=== PATIENT | female | born 1960 | race Caucasian/White ===

== ENCOUNTER 2018-07-16 16:19 | Emergency (ER) | payer SELFPAY ==
[~2018-07-16] VITALS: Ht 152.4 cm; Wt 90.5 kg
[2018-07-16 16:36] VITALS: BP 134/61
[2018-07-16 17:43] LABS: INFLUENZA TYPE A NEGATIVE FOR TYPE A (NEGATIVE); INFLUENZA TYPE B NEGATIVE FOR TYPE B (NEGATIVE)
[2018-07-16] MEDS ORDERED: ALBUTEROL SULFATE HFA 90 MCG/PUFF 8 GM INHALER IH ONE (17:45)
[2018-07-16] MEDS ORDERED: IBUPROFEN 800 MG TABLET PO ONE (17:45)
== END 2018-07-16 18:29 | disposition home or self-care (01) ==
LOC: EMS 16:20
DX: J20.9 Acute bronchitis, unspecified (principal); B34.9 Viral infection, unspecified; Z88.5 Allergy status to narcotic agent
CPT/HCPCS: 87804; 94640; J3535

== ENCOUNTER 2021-12-13 19:40 | Emergency (ER) | payer OTHER ==
[~2021-12-13] VITALS: Ht 152.4 cm; Wt 92.7 kg
[2021-12-13 21:05] VITALS: BP 140/76
[2021-12-13] MEDS ORDERED: LIDOCAINE 1% 10 ML VIAL PERC ONE (21:15)
[2021-12-13] MEDS ORDERED: PERTUSS(ACELL),DIPH,TET VAC/PF 0.5 ML SYRINGE IM. ONE (21:15)
== END 2021-12-13 21:48 | disposition home or self-care (01) ==
LOC: EMS 19:43
DX: S81.012A Laceration without foreign body, left knee, initial encounter (principal); Z88.5 Allergy status to narcotic agent; W45.8XXA Other foreign body or object entering through skin, initial encounter; Y93.89 Activity, other specified; Y92.89 Other specified places as the place of occurrence of the external cause; Y99.8 Other external cause status
CPT/HCPCS: 12002; 90471; 90715; 99283; J3490

== ENCOUNTER 2021-12-19 12:19 | Emergency (ER) | payer OTHER ==
[~2021-12-19] VITALS: Ht 152.4 cm; Wt 93.2 kg
[2021-12-19 12:46] VITALS: BP 110/76
== END 2021-12-19 14:03 | disposition home or self-care (01) ==
LOC: EMS 12:19
DX: S81.011D Laceration without foreign body, right knee, subsequent encounter (principal); F17.210 Nicotine dependence, cigarettes, uncomplicated; Z88.5 Allergy status to narcotic agent; X58.XXXD Exposure to other specified factors, subsequent encounter
CPT/HCPCS: 99281; Z7502

== ENCOUNTER 2023-12-31 02:46 | Emergency (ER) | payer MEDICARE, OTHER ==
[~2023-12-31] VITALS: Ht 152.4 cm; Wt 95.0 kg
[2023-12-31 02:52] VITALS: TEMP 98.2
[2023-12-31] MEDS: AMOXICILLIN TRIHYDRATE 250 MG CAPSULE PO ONE (04:31)
[2023-12-31] MEDS: CIPROFLOXACIN HCL 0.2%/HYDROCORT 1% 10 ML OTIC SUSPENSION AD ONE (04:32)
[2023-12-31] MEDS ORDERED: CEPH-558 PO (04:42)
[2023-12-31 04:45] VITALS: BP 127/70; PULSE 76; RESP 16
== END 2023-12-31 05:15 | disposition home or self-care (01) ==
LOC: EMS 02:46
DX: H60.11 Cellulitis of right external ear (principal); H60.91 Unspecified otitis externa, right ear; F17.210 Nicotine dependence, cigarettes, uncomplicated; Z88.5 Allergy status to narcotic agent
CPT/HCPCS: 99283

== ENCOUNTER 2024-03-25 12:07 | Emergency (ER) | payer MEDICARE ==
[~2024-03-25] VITALS: Ht 152.4 cm; Wt 90.9 kg
[~2024-03-25 12:07] MED LIST: CEPH-558 PO
[2024-03-25 12:38] VITALS: TEMP 97.6
[2024-03-25] MEDS: ACETAMINOPHEN 325 MG TABLET PO ONE (13:59)
[2024-03-25 14:14] VITALS: BP 141/76; PULSE 72; RESP 18; O2SAT 97
== END 2024-03-25 14:15 | disposition home or self-care (01) ==
LOC: EMS 12:13
DX: S80.02XA Contusion of left knee, initial encounter (principal); S49.91XA Unspecified injury of right shoulder and upper arm, initial encounter; F17.210 Nicotine dependence, cigarettes, uncomplicated; Z88.5 Allergy status to narcotic agent; W22.8XXA Striking against or struck by other objects, initial encounter; Y93.89 Activity, other specified; Y92.89 Other specified places as the place of occurrence of the external cause; Y99.8 Other external cause status
CPT/HCPCS: 99284; 73030-TC; 73562-TC; Z7502; Z7610

== ENCOUNTER 2024-12-18 22:11 | Inpatient (IN) | payer MEDICARE ==
[~2024-12-18] VITALS: Ht 165.1 cm; Wt 108.9 kg
[~2024-12-18 22:11] MED LIST changes: +METF-81 PO
[2024-12-18 22:15] VITALS: PULSE 133; RESP 42; O2SAT 94
[2024-12-18] MEDS ORDERED: ALBUTEROL SULFATE 2.5 MG/0.5 ML NEB SOLUTION NEB ONE (22:15)
[2024-12-18] MEDS ORDERED: IPRATROPIUM BROMIDE 0.5 MG/2.5 ML NEB SOLUTION NEB ONE (22:15)
[2024-12-18] MEDS: FUROSEMIDE 20 MG/2 ML VIAL IVP ONE (22:23)
[2024-12-18] MEDS: IPRATROPIUM BROMIDE 0.5 MG/2.5 ML NEB SOLUTION NEB ONE (22:26)
[2024-12-18] MEDS: LEVALBUTEROL 1.25 MG/0.5 ML NEB SOLUTION NEB ONE (22:27)
[2024-12-18 22:30] VITALS: PULSE 134; RESP 46; O2SAT 99
[2024-12-18 22:35] LABS: EOSINOPHILS % (AUTO) 1.1 % (1.0-6.0); HEMATOCRIT 36.7 % (36-46); HEMOGLOBIN 11.3 g/dL (12.0-16.0); LYMPHOCYTES # (AUTO) 6.8 K/uL (1.0-4.8); LYMPHOCYTES % (AUTO) 25.4 % (22.0-44.0); MEAN CORPUSCULAR HEMOGLOBIN 26.2 pg (26.0-34.0); MEAN CORPUSCULAR VOLUME 85 fL (80-100); MONOCYTES # (AUTO) 2.7 K/uL (0.1-1.0); NEUTROPHILS # (AUTO) 16.8 K/uL (1.8-7.7); NEUTROPHILS % (AUTO) 62.5 % (40.0-70.0); PLATELET COUNT (AUTO) 586 K/uL (150-450); RED BLOOD CELL COUNT(AUTO) 4.33 MIL/uL (4.00-5.20); RED CELL DISTRIBUTION WIDTH 14.4 % (11.5-14.5); WHITE BLOOD COUNT (AUTO) 26.8 K/uL (4.5-11.0)
[2024-12-18 22:43] LABS: ANION GAP 9 mmol/L (8-16); CALCIUM, TOTAL 8.6 mg/dL (8.8-10.5); CARBON DIOXIDE 24 mmol/L (22-29); CHLORIDE 104 mmol/L (98-107); CREATININE 1.44 mg/dL (0.60-1.30); GLOMERULAR FILTR. RATE CALC 36 mL/min (>60); GLUCOSE,RANDOM 249 mg/dL (70-110); POTASSIUM 4.7 mmol/L (3.5-5.1); SODIUM SERUM 137 mmol/L (136-145); UREA NITROGEN, BLOOD 20 mg/dL (7-18)
[2024-12-18 22:45] VITALS: PULSE 132; RESP 48; O2SAT 99
[2024-12-18] MEDS ORDERED: VANCOMYCIN 1.25 GM/WATER(PEG) 250 ML IV ONE (22:45)
[2024-12-18 22:49] LABS: PROTHROMBIN TIME 11.7 SEC (9.4-11.6)
[2024-12-18 22:50] LABS: ALANINE AMINOTRANSFERASE 8 U/L (12-78); ALBUMIN 2.3 g/dL (3.4-5.0); ALKALINE PHOSPHATASE 96 U/L (46-116); ASPARTATE AMINOTRANSFERASE 45 U/L (15-37); BILIRUBIN,TOTAL 0.4 mg/dL (0.1-1.0); CREATINE KINASE, TOTAL ONLY 71 U/L (26-192); PHOSPHORUS 6.2 mg/dL (2.5-4.9); TOTAL PROTEIN, SERUM 8.1 g/dL (6.4-8.2)
[2024-12-18 22:51] LABS: B-TYPE NATRIURETIC PEPTIDE 1390 pg/mL (0-100)
[2024-12-18 22:54] LABS: LACTIC ACID 6.6 mmol/L (0.4-2.0)
[2024-12-18] MEDS: ACETAMINOPHEN 1000 MG/ISO-OSM 100 ML IV ONE (22:54)
[2024-12-18] MEDS: PIPERACILLIN/TAZO 3.375 GM/D5W 50 ML IV ONE (22:54)
[2024-12-18] MEDS: AZITHROMYCIN 500 MG/NS 250 ML IV ONE (22:54)
[2024-12-18 22:55] LABS: TROPONIN I-HIGH SENSITIVITY 21 ng/L (<51)
[2024-12-18] MEDS: VANCOMYCIN HCL 1.25 GM in DEXTROSE 5%-WATER 250 ML IV SCH (23:30)
[2024-12-19] VITALS (11 sets, daily range): BP systolic 106–129; BP diastolic 51–69; PULSE 81–93; RESP 18–29; TEMP 97.5–98.1; O2SAT 94–100
[2024-12-19 00:27] LABS: COVID AG,FIA SOURCE NASAL SWAB
[2024-12-19 00:48] LABS: APPEARANCE,URINE HAZY (CLEAR); BILIRUBIN,URINE NEGATIVE (NEGATIVE); COLOR,URINE LIGHT YELLOW (YELLOW); GLUCOSE, URINE (UA) TRACE mg/dL (NEGATIVE); KETONES,URINE NEGATIVE (NEGATIVE); LEUKOCYTE ESTERASE ,URINE NEGATIVE (NEGATIVE); NITRATE,URINE NEGATIVE (NEGATIVE); OCCULT BLOOD,URINE MODERATE (NEGATIVE); PH,URINE 6.5 (5.0-8.0); PROTEIN,URINE 300-600,SEE CONFIRM mg/dL (NEGATIVE); SPECIFIC GRAVITIY, URINE 1.012 (1.003-1.030); UROBILINOGEN,URINE <=1.0 mg/dL (<=1.0)
[2024-12-19 00:55] LABS: SARS-COV2 (COVID) ANTIGEN,FIA Negative (Negative)
[2024-12-19 00:56] LABS: INFLUENZA TYPE A NEGATIVE FOR TYPE A (NEGATIVE); INFLUENZA TYPE B NEGATIVE FOR TYPE B (NEGATIVE)
[2024-12-19 01:04] LABS: BACTERIA,URINE Moderate /HPF (None Seen); SQUAMOUS EPITHELIAL CELL,UR Moderate /LPF (None Seen); SULFOSALICYLIC ACID,URINE 2+ (Negative)
[2024-12-19 05:13] LABS: BASOPHILS % (AUTO) 0.1 % (0.0-2.0); EOSINOPHILS % (AUTO) 0.2 % (1.0-6.0); HEMATOCRIT 28.2 % (36-46); HEMOGLOBIN 9.1 g/dL (12.0-16.0); MEAN CORPUSCULAR HEMOGLOBIN 26.1 pg (26.0-34.0); MEAN CORPUSCULAR HGB CONC 32.2 G/dL (31.0-37.0); MEAN CORPUSCULAR VOLUME 81 fL (80-100); MONOCYTES # (AUTO) 1.2 K/uL (0.1-1.0); MONOCYTES % (AUTO) 7.9 % (2.0-9.0); NEUTROPHILS # (AUTO) 12.6 K/uL (1.8-7.7); NEUTROPHILS % (AUTO) 84.8 % (40.0-70.0); PLATELET COUNT (AUTO) 356 K/uL (150-450); RED BLOOD CELL COUNT(AUTO) 3.48 MIL/uL (4.00-5.20); WHITE BLOOD COUNT (AUTO) 14.9 K/uL (4.5-11.0)
[2024-12-19 05:23] LABS: ANION GAP 6 mmol/L (8-16); CARBON DIOXIDE 26 mmol/L (22-29); CHLORIDE 105 mmol/L (98-107); CREATININE 1.61 mg/dL (0.60-1.30); GLOMERULAR FILTR. RATE CALC 32 mL/min (>60); GLUCOSE,RANDOM 118 mg/dL (70-110); POTASSIUM 5.3 mmol/L (3.5-5.1); SODIUM SERUM 137 mmol/L (136-145); UREA NITROGEN, BLOOD 23 mg/dL (7-18)
[2024-12-19 05:35] LABS: TROPONIN I-HIGH SENSITIVITY 92 ng/L (<51)
[2024-12-19] MEDS ORDERED: BISACODYL 10 MG RECTAL RECTAL SUPPOSITORY PR PRN (05:45)
[2024-12-19] MEDS ORDERED: ACETAMINOPHEN 325 MG TABLET PO PRN (05:45)
[2024-12-19] MEDS ORDERED: MAGNESIUM HYDROXIDE SUSPENSION 30 ML UDCUP PO PRN (05:45)
[2024-12-19] MEDS: MethylPREDNISolone SOD SUCC 125 MG/2 ML VIAL IVP SCH (06:21)
[2024-12-19] MEDS: PIPERACILLIN/TAZO 3.375 GM/D5W 50 ML IV SCH (06:21)
[2024-12-19 07:36] LABS: TROPONIN I-HIGH SENSITIVITY 89 ng/L (<51)
[2024-12-19] MEDS ORDERED: VANCOMYCIN 1.25 GM/WATER(PEG) 250 ML IV SCH (08:00)
[2024-12-19 08:05] LABS: ABG A-A DIFF O2 163.3 mmHg (10-20.0); ABG BASE EXCESS -1.3 mmol/L (-2.0-3.0); ABG CARBOXYHEMOGLOBIN 0.2 % (0.5-1.5); ABG HCO3 23.7 mmol/L (21.0-28.0); ABG METHEMOGLOBIN 0.1 % (0.0-1.5); ABG OXYGEN CONTENT 14.8 mL/dL (15.0-23.0); ABG OXYGEN SATURATION 99.1 % (94.0-98.0); ABG OXYHEMOGLOBIN 98.8 % (94.0-98.0); ABG PCO2 37 mmHg (32.0-45.0); ABG PH 7.416 (7.350-7.450); ABG TOTAL HEMOGLOBIN 10.4 G/dL (12.0-16.0); ALLEN TEST, BLOOD GAS Positive; O2 DEVICE,BLOOD GAS BIPAP (ROOM AIR); PO2, ARTERIAL BG 151.9 mmHg (83.0-108.0); SITE, BLOOD GAS LFT RADIAL; SOURCE, BLOOD GAS ARTERIAL
[2024-12-19 08:06] LABS: SPONTANEOUS VT, BG 400 ml
[2024-12-19] MEDS: DOCUSATE SODIUM 100 MG CAPSULE PO SCH (08:07)
[2024-12-19] MEDS: HEPARIN SODIUM,PORCINE 5,000 UNITS/ML VIAL SQ SCH (08:07)
[2024-12-19] MEDS: PANTOPRAZOLE SODIUM 40 MG DR TABLET PO SCH (08:07)
[2024-12-19] MEDS: GuaiFENesin SR 600 MG ER TABLET PO SCH (08:07)
[2024-12-19] MEDS: BENZONATATE 100 MG CAPSULE PO SCH (08:07)
[2024-12-19] MEDS: ALBUTEROL SULFATE 2.5 MG/0.5 ML NEB SOLUTION NEB SCH (08:10)
[2024-12-19] MEDS: IPRATROPIUM BROMIDE 0.5 MG/2.5 ML NEB SOLUTION NEB SCH (08:10)
[2024-12-19] MEDS: VANCOMYCIN HCL 1.25 GM in DEXTROSE 5%-WATER 250 ML IV SCH (08:19)
[2024-12-19 16:47] LABS: APPEARANCE,URINE HAZY (CLEAR); BILIRUBIN,URINE NEGATIVE (NEGATIVE); COLOR,URINE LIGHT YELLOW (YELLOW); GLUCOSE, URINE (UA) NEGATIVE (NEGATIVE); KETONES,URINE NEGATIVE (NEGATIVE); LEUKOCYTE ESTERASE ,URINE SMALL (NEGATIVE); NITRATE,URINE NEGATIVE (NEGATIVE); OCCULT BLOOD,URINE LARGE (NEGATIVE); PH,URINE 5.5 (5.0-8.0); PROTEIN,URINE 100-200,SEE CONFIRM mg/dL (NEGATIVE); SPECIFIC GRAVITIY, URINE 1.012 (1.003-1.030); UROBILINOGEN,URINE <=1.0 mg/dL (<=1.0)
[2024-12-19 16:56] LABS: PROTEIN,URINE RANDOM 137 mg/dL (0-11.9); SODIUM,URINE RANDOM 28 mmol/l (20-110); UREA NITROGEN,URINE RANDOM 159 mg/dL (350-1000)
[2024-12-19] MEDS ORDERED: SODIUM CHLORIDE 0.9% 250 ML IV ONE (17:37)
[2024-12-19 17:53] LABS: BACTERIA,URINE Moderate /HPF (None Seen); FINE GRANULAR CASTS,URINE 0-2 /LPF (None Seen); SQUAMOUS EPITHELIAL CELL,UR Few /LPF (None Seen)
[2024-12-19] MEDS: FUROSEMIDE 40 MG/4 ML VIAL IVP SCH (20:42)
[2024-12-20] VITALS (13 sets, daily range): BP systolic 106–133; BP diastolic 62–76; PULSE 77–89; RESP 18–28; TEMP 97.9–98.4; O2SAT 95–100
[2024-12-20 06:39] LABS: BASOPHILS % (AUTO) 0.1 % (0.0-2.0); EOSINOPHILS % (AUTO) 0 % (1.0-6.0); HEMATOCRIT 31.1 % (36-46); HEMOGLOBIN 10.1 g/dL (12.0-16.0); LYMPHOCYTES # (AUTO) 0.6 K/uL (1.0-4.8); LYMPHOCYTES % (AUTO) 4.3 % (22.0-44.0); MEAN CORPUSCULAR HEMOGLOBIN 26.6 pg (26.0-34.0); MEAN CORPUSCULAR HGB CONC 32.5 G/dL (31.0-37.0); MEAN CORPUSCULAR VOLUME 82 fL (80-100); MONOCYTES # (AUTO) 0.2 K/uL (0.1-1.0); MONOCYTES % (AUTO) 1.6 % (2.0-9.0); PLATELET COUNT (AUTO) 383 K/uL (150-450); RED BLOOD CELL COUNT(AUTO) 3.79 MIL/uL (4.00-5.20); RED CELL DISTRIBUTION WIDTH 14.2 % (11.5-14.5); WHITE BLOOD COUNT (AUTO) 13.8 K/uL (4.5-11.0)
[2024-12-20 06:51] LABS: CALCIUM, TOTAL 8.5 mg/dL (8.8-10.5); CREATININE 3.16 mg/dL (0.60-1.30); POTASSIUM 4.7 mmol/L (3.5-5.1)
[2024-12-20 06:56] LABS: MAGNESIUM 2.2 mg/dL (1.80-2.40); PHOSPHORUS 6.1 mg/dL (2.5-4.9)
[2024-12-20] MEDS ORDERED: VANCOMYCIN 1GM/WATER(PEG/NADA) 200 ML IV PRN (09:00)
[2024-12-20 12:11] LABS: ABG BASE EXCESS -6.9 mmol/L (-2.0-3.0); ABG CARBOXYHEMOGLOBIN 0.3 % (0.5-1.5); ABG HCO3 19.7 mmol/L (21.0-28.0); ABG OXYGEN CONTENT 13.5 mL/dL (15.0-23.0); ABG OXYGEN SATURATION 96.6 % (94.0-98.0); ABG OXYHEMOGLOBIN 95.3 % (94.0-98.0); ABG PCO2 27 mmHg (32.0-45.0); ABG PH 7.427 (7.350-7.450); PO2, ARTERIAL BG 79.9 mmHg (83.0-108.0); SOURCE, BLOOD GAS ARTERIAL; TEMPERATURE, FAHRENHEIT, BG 98.1 FAHREN (96.0-98.6)
[2024-12-20 12:12] LABS: ABG A-A DIFF O2 37.5 mmHg (10-20.0); ALLEN TEST, BLOOD GAS Positive; O2 DEVICE,BLOOD GAS ROOM AIR (ROOM AIR); SITE, BLOOD GAS LFT RADIAL
[2024-12-20] MEDS ORDERED: RISA150P SQ (12:12)
[2024-12-20] MEDS: SODIUM CHLORIDE 0.9% 1,000 ML IV SCH (13:26)
[2024-12-20] MEDS: PIPERACILLIN SODIUM/TAZOBACTAM 2.25 GM in DEXTROSE 5%-WATER 50 ML IV SCH (13:26)
[2024-12-20] MEDS: MethylPREDNISolone SOD SUCC 40 MG/ML VIAL IVP SCH (13:26)
[2024-12-20] MEDS ORDERED: FUROSEMIDE 40 MG/4 ML VIAL IVP SCH (21:00)
[2024-12-20] MEDS: ZOLPIDEM TARTRATE 5 MG TABLET PO PRN (22:34)
[2024-12-21] VITALS (12 sets, daily range): BP systolic 104–151; BP diastolic 57–89; PULSE 74–90; RESP 18–28; TEMP 97.3–98.1; O2SAT 96–100
[2024-12-21] MEDS: ALBUTEROL SULFATE 2.5 MG/0.5 ML NEB SOLUTION NEB PRN (04:31)
[2024-12-21] MEDS: IPRATROPIUM BROMIDE 0.5 MG/2.5 ML NEB SOLUTION NEB PRN (04:31)
[2024-12-21 06:50] LABS: BASOPHILS % (AUTO) 0.1 % (0.0-2.0); EOSINOPHILS % (AUTO) 0 % (1.0-6.0); HEMATOCRIT 26.4 % (36-46); HEMOGLOBIN 8.7 g/dL (12.0-16.0); LYMPHOCYTES # (AUTO) 0.6 K/uL (1.0-4.8); LYMPHOCYTES % (AUTO) 6.1 % (22.0-44.0); MEAN CORPUSCULAR HEMOGLOBIN 26.8 pg (26.0-34.0); MEAN CORPUSCULAR HGB CONC 32.9 G/dL (31.0-37.0); MEAN CORPUSCULAR VOLUME 81 fL (80-100); MONOCYTES # (AUTO) 0.3 K/uL (0.1-1.0); MONOCYTES % (AUTO) 2.8 % (2.0-9.0); NEUTROPHILS # (AUTO) 9.3 K/uL (1.8-7.7); PLATELET COUNT (AUTO) 362 K/uL (150-450); RED BLOOD CELL COUNT(AUTO) 3.24 MIL/uL (4.00-5.20); RED CELL DISTRIBUTION WIDTH 14.2 % (11.5-14.5); WHITE BLOOD COUNT (AUTO) 10.2 K/uL (4.5-11.0)
[2024-12-21 06:56] LABS: CALCIUM, TOTAL 8.2 mg/dL (8.8-10.5); CREATININE 3.96 mg/dL (0.60-1.30); POTASSIUM 4.6 mmol/L (3.5-5.1)
[2024-12-21] MEDS: PIPERACILLIN SODIUM/TAZOBACTAM 2.25 GM in DEXTROSE 5%-WATER 50 ML IV SCH (14:06)
[2024-12-22] VITALS (15 sets, daily range): BP systolic 125–147; BP diastolic 68–88; PULSE 65–93; RESP 18–22; TEMP 97.5–98.4; O2SAT 95–100
[2024-12-22 07:06] LABS: BASOPHILS % (AUTO) 0.1 % (0.0-2.0); EOSINOPHILS % (AUTO) 0 % (1.0-6.0); HEMATOCRIT 28.9 % (36-46); HEMOGLOBIN 9.4 g/dL (12.0-16.0); LYMPHOCYTES # (AUTO) 0.7 K/uL (1.0-4.8); LYMPHOCYTES % (AUTO) 6.4 % (22.0-44.0); MEAN CORPUSCULAR HEMOGLOBIN 26.7 pg (26.0-34.0); MEAN CORPUSCULAR HGB CONC 32.5 G/dL (31.0-37.0); MEAN CORPUSCULAR VOLUME 82 fL (80-100); MONOCYTES # (AUTO) 0.3 K/uL (0.1-1.0); MONOCYTES % (AUTO) 2.8 % (2.0-9.0); NEUTROPHILS # (AUTO) 9.9 K/uL (1.8-7.7); PLATELET COUNT (AUTO) 432 K/uL (150-450); RED BLOOD CELL COUNT(AUTO) 3.51 MIL/uL (4.00-5.20); RED CELL DISTRIBUTION WIDTH 14.5 % (11.5-14.5); WHITE BLOOD COUNT (AUTO) 10.9 K/uL (4.5-11.0)
[2024-12-22 07:09] LABS: NEUTROPHILS % (AUTO) 90.7 % (40.0-70.0)
[2024-12-22 07:22] LABS: CALCIUM, TOTAL 8.4 mg/dL (8.8-10.5); CREATININE 4.19 mg/dL (0.60-1.30); POTASSIUM 4.3 mmol/L (3.5-5.1)
[2024-12-22 07:31] LABS: MAGNESIUM 2.3 mg/dL (1.80-2.40); PHOSPHORUS 7.5 mg/dL (2.5-4.9)
[2024-12-22] MEDS: *CLINICAL-LEVOFLOXACIN ORAL DOSING CLINICAL ONE (17:12)
[2024-12-22] MEDS: LEVOFLOXACIN 750 MG/D5% WATER 150 ML IV ONE (18:14)
[2024-12-22] MEDS: CeFAZolin 2 GM/DEXTROSE 50 ML IV SCH (21:00)
[2024-12-23] VITALS (11 sets, daily range): BP systolic 141–155; BP diastolic 68–88; PULSE 73–82; RESP 17–20; TEMP 97.5–97.9; O2SAT 95–100
[2024-12-23 07:15] LABS: ALBUMIN 2.5 g/dL (3.4-5.0); BILIRUBIN,TOTAL 0.5 mg/dL (0.1-1.0); CALCIUM, TOTAL 8.6 mg/dL (8.8-10.5); CREATININE 3.92 mg/dL (0.60-1.30); POTASSIUM 4.3 mmol/L (3.5-5.1); TOTAL PROTEIN, SERUM 7.5 g/dL (6.4-8.2)
[2024-12-23] MEDS: PredniSONE 20 MG TABLET PO SCH (08:31)
[2024-12-23] MEDS ORDERED: DEXTROSE 50%-WATER 25 GM/50 ML SYRINGE IVP PRN (18:45)
[2024-12-23] MEDS: INSULIN LISPRO 100 UNITS/ML SQ PRN (20:45)
[2024-12-24] VITALS (12 sets, daily range): BP systolic 141–160; BP diastolic 74–93; PULSE 73–95; RESP 16–20; TEMP 97.5–98.2; O2SAT 94–100
[2024-12-24 05:46] LABS: GLUCOMETER DEV NAME(LOC) 5N.2C; GLUCOSE,POINT OF CARE 232 MG/DL (70-110)
[2024-12-24 06:05] LABS: GLUCOMETER DEV NAME(LOC) 5N.2C; GLUCOSE,POINT OF CARE 123 MG/DL (70-110)
[2024-12-24 06:57] LABS: BASOPHILS % (AUTO) 0.1 % (0.0-2.0); EOSINOPHILS % (AUTO) 0.1 % (1.0-6.0); HEMATOCRIT 27.5 % (36-46); LYMPHOCYTES # (AUTO) 1.1 K/uL (1.0-4.8); MEAN CORPUSCULAR HEMOGLOBIN 26.6 pg (26.0-34.0); MEAN CORPUSCULAR HGB CONC 32.6 G/dL (31.0-37.0); MEAN CORPUSCULAR VOLUME 81 fL (80-100); MONOCYTES # (AUTO) 0.9 K/uL (0.1-1.0); MONOCYTES % (AUTO) 9.1 % (2.0-9.0); NEUTROPHILS # (AUTO) 7.5 K/uL (1.8-7.7); NEUTROPHILS % (AUTO) 78.7 % (40.0-70.0); PLATELET COUNT (AUTO) 339 K/uL (150-450); RED BLOOD CELL COUNT(AUTO) 3.37 MIL/uL (4.00-5.20); RED CELL DISTRIBUTION WIDTH 14.7 % (11.5-14.5); WHITE BLOOD COUNT (AUTO) 9.5 K/uL (4.5-11.0)
[2024-12-24 07:05] LABS: ALBUMIN 2.5 g/dL (3.4-5.0); BILIRUBIN,TOTAL 0.4 mg/dL (0.1-1.0); CALCIUM, TOTAL 8.6 mg/dL (8.8-10.5); CREATININE 3.59 mg/dL (0.60-1.30); POTASSIUM 4.2 mmol/L (3.5-5.1); TOTAL PROTEIN, SERUM 6.9 g/dL (6.4-8.2)
[2024-12-24 07:19] LABS: % IRON SATURATION 26.2 % (22-44)
[2024-12-24] MEDS: LEVOFLOXACIN 500 MG/D5% WATER 100 ML IV SCH (17:15)
[2024-12-24 18:36] LABS: GLUCOMETER DEV NAME(LOC) 5S.2D; GLUCOSE,POINT OF CARE 171 MG/DL (70-110)
[2024-12-24 18:36] LABS: GLUCOMETER DEV NAME(LOC) 5S.2D; GLUCOSE,POINT OF CARE 235 MG/DL (70-110)
[2024-12-24 22:51] LABS: GLUCOMETER DEV NAME(LOC) 5N.2C; GLUCOSE,POINT OF CARE 168 MG/DL (70-110)
[2024-12-25] VITALS (10 sets, daily range): BP systolic 137–159; BP diastolic 72–74; PULSE 79–92; RESP 18–24; TEMP 97.7–98.1; O2SAT 95–100
[2024-12-25 07:29] LABS: CALCIUM, TOTAL 8.5 mg/dL (8.8-10.5); CREATININE 3.27 mg/dL (0.60-1.30); POTASSIUM 4.2 mmol/L (3.5-5.1)
[2024-12-25] MEDS: PredniSONE 20 MG TABLET PO SCH (08:16)
[2024-12-25 12:01] LABS: GLUCOMETER DEV NAME(LOC) 5S.2D; GLUCOSE,POINT OF CARE 166 MG/DL (70-110)
[2024-12-25] MEDS: FUROSEMIDE 20 MG/2 ML VIAL IVP ONE (13:40)
[2024-12-25 13:46] LABS: GLUCOMETER DEV NAME(LOC) 5S.2D; GLUCOSE,POINT OF CARE 147 MG/DL (70-110)
[2024-12-25 22:00] LABS: GLUCOMETER DEV NAME(LOC) 5N.2C; GLUCOSE,POINT OF CARE 196 MG/DL (70-110)
[2024-12-25 22:16] LABS: GLUCOMETER DEV NAME(LOC) 5S.2D; GLUCOSE,POINT OF CARE 213 MG/DL (70-110)
[2024-12-26] VITALS (15 sets, daily range): BP systolic 125–159; BP diastolic 59–88; PULSE 72–99; RESP 17–20; TEMP 97.7–98.2; O2SAT 97–100
[2024-12-26 07:16] LABS: GLUCOMETER DEV NAME(LOC) 5N.2C; GLUCOSE,POINT OF CARE 119 MG/DL (70-110)
[2024-12-26 07:52] LABS: BASOPHILS % (AUTO) 0.1 % (0.0-2.0); EOSINOPHILS % (AUTO) 1.2 % (1.0-6.0); HEMATOCRIT 31.9 % (36-46); HEMOGLOBIN 10.4 g/dL (12.0-16.0); LYMPHOCYTES # (AUTO) 1.1 K/uL (1.0-4.8); LYMPHOCYTES % (AUTO) 8.8 % (22.0-44.0); MEAN CORPUSCULAR HEMOGLOBIN 26.4 pg (26.0-34.0); MEAN CORPUSCULAR HGB CONC 32.6 G/dL (31.0-37.0); MEAN CORPUSCULAR VOLUME 81 fL (80-100); MONOCYTES % (AUTO) 8.2 % (2.0-9.0); NEUTROPHILS # (AUTO) 10.5 K/uL (1.8-7.7); NEUTROPHILS % (AUTO) 81.7 % (40.0-70.0); PLATELET COUNT (AUTO) 381 K/uL (150-450); RED BLOOD CELL COUNT(AUTO) 3.93 MIL/uL (4.00-5.20); RED CELL DISTRIBUTION WIDTH 15.2 % (11.5-14.5); WHITE BLOOD COUNT (AUTO) 12.8 K/uL (4.5-11.0)
[2024-12-26] MEDS: carvediloL 3.125 MG TABLET PO SCH (08:00)
[2024-12-26 08:08] LABS: ALBUMIN 2.4 g/dL (3.4-5.0); BILIRUBIN,TOTAL 0.6 mg/dL (0.1-1.0); CALCIUM, TOTAL 8.6 mg/dL (8.8-10.5); CREATININE 3.04 mg/dL (0.60-1.30); POTASSIUM 4.2 mmol/L (3.5-5.1)
[2024-12-26] MEDS: FUROSEMIDE 20 MG/2 ML VIAL IVP SCH (11:24)
[2024-12-26 12:06] LABS: GLUCOMETER DEV NAME(LOC) 5N.2C; GLUCOSE,POINT OF CARE 175 MG/DL (70-110)
[2024-12-26 19:56] LABS: GLUCOMETER DEV NAME(LOC) 5N.2C; GLUCOSE,POINT OF CARE 168 MG/DL (70-110)
[2024-12-27] VITALS (13 sets, daily range): BP systolic 136–148; BP diastolic 44–85; PULSE 74–96; RESP 18–20; TEMP 97.5–98.2; O2SAT 96–100
[2024-12-27 04:01] LABS: GLUCOMETER DEV NAME(LOC) 5S.2D; GLUCOSE,POINT OF CARE 197 MG/DL (70-110)
[2024-12-27 07:20] LABS: BASOPHILS % (AUTO) 0.3 % (0.0-2.0); EOSINOPHILS % (AUTO) 1.8 % (1.0-6.0); HEMATOCRIT 31.6 % (36-46); HEMOGLOBIN 10.2 g/dL (12.0-16.0); LYMPHOCYTES # (AUTO) 1.2 K/uL (1.0-4.8); LYMPHOCYTES % (AUTO) 10.5 % (22.0-44.0); MEAN CORPUSCULAR HEMOGLOBIN 26.2 pg (26.0-34.0); MEAN CORPUSCULAR HGB CONC 32.2 G/dL (31.0-37.0); MEAN CORPUSCULAR VOLUME 81 fL (80-100); MONOCYTES # (AUTO) 0.9 K/uL (0.1-1.0); MONOCYTES % (AUTO) 7.6 % (2.0-9.0); NEUTROPHILS # (AUTO) 9.3 K/uL (1.8-7.7); NEUTROPHILS % (AUTO) 79.8 % (40.0-70.0); PLATELET COUNT (AUTO) 350 K/uL (150-450); RED BLOOD CELL COUNT(AUTO) 3.89 MIL/uL (4.00-5.20); RED CELL DISTRIBUTION WIDTH 14.8 % (11.5-14.5); WHITE BLOOD COUNT (AUTO) 11.6 K/uL (4.5-11.0)
[2024-12-27 07:30] LABS: GLUCOMETER DEV NAME(LOC) 5S.2D; GLUCOSE,POINT OF CARE 132 MG/DL (70-110)
[2024-12-27 07:31] LABS: CALCIUM, TOTAL 8.5 mg/dL (8.8-10.5); CREATININE 2.73 mg/dL (0.60-1.30)
[2024-12-27 11:45] LABS: GLUCOMETER DEV NAME(LOC) 5N.2C; GLUCOSE,POINT OF CARE 169 MG/DL (70-110)
[2024-12-27 18:46] LABS: GLUCOMETER DEV NAME(LOC) 5N.1D; GLUCOSE,POINT OF CARE 198 MG/DL (70-110)
[2024-12-28] VITALS (14 sets, daily range): BP systolic 129–154; BP diastolic 62–95; PULSE 76–97; RESP 17–20; TEMP 97.9–98.4; O2SAT 97–100
[2024-12-28 00:36] LABS: GLUCOMETER DEV NAME(LOC) 5N.1D; GLUCOSE,POINT OF CARE 211 MG/DL (70-110)
[2024-12-28 05:07] LABS: COMPLEMENT C3 115 mg/dL (82-167); COMPLEMENT C4 26 mg/dL (12-38)
[2024-12-28] MEDS ORDERED: SODIUM CHLORIDE 0.9% 500 ML IV ONE (06:18)
[2024-12-28 06:52] LABS: CALCIUM, TOTAL 8.3 mg/dL (8.8-10.5); CREATININE 2.49 mg/dL (0.60-1.30); POTASSIUM 3.7 mmol/L (3.5-5.1)
[2024-12-28 06:53] LABS: BASOPHILS % (AUTO) 0.1 % (0.0-2.0); EOSINOPHILS % (AUTO) 1.7 % (1.0-6.0); HEMATOCRIT 31.1 % (36-46); HEMOGLOBIN 10.1 g/dL (12.0-16.0); LYMPHOCYTES # (AUTO) 1.2 K/uL (1.0-4.8); LYMPHOCYTES % (AUTO) 12.7 % (22.0-44.0); MEAN CORPUSCULAR HEMOGLOBIN 26.5 pg (26.0-34.0); MEAN CORPUSCULAR HGB CONC 32.5 G/dL (31.0-37.0); MEAN CORPUSCULAR VOLUME 82 fL (80-100); MONOCYTES # (AUTO) 0.8 K/uL (0.1-1.0); NEUTROPHILS # (AUTO) 7.2 K/uL (1.8-7.7); NEUTROPHILS % (AUTO) 76.5 % (40.0-70.0); PLATELET COUNT (AUTO) 325 K/uL (150-450); RED BLOOD CELL COUNT(AUTO) 3.82 MIL/uL (4.00-5.20); RED CELL DISTRIBUTION WIDTH 14.7 % (11.5-14.5); WHITE BLOOD COUNT (AUTO) 9.5 K/uL (4.5-11.0)
[2024-12-28 06:56] LABS: ALBUMIN 2.3 g/dL (3.4-5.0); BILIRUBIN,TOTAL 0.5 mg/dL (0.1-1.0); CALCIUM, TOTAL 8.3 mg/dL (8.8-10.5); CREATININE 2.47 mg/dL (0.60-1.30); POTASSIUM 3.7 mmol/L (3.5-5.1); TOTAL PROTEIN, SERUM 6.2 g/dL (6.4-8.2)
[2024-12-28 07:11] LABS: GLUCOMETER DEV NAME(LOC) 5N.1D; GLUCOSE,POINT OF CARE 112 MG/DL (70-110)
[2024-12-28] MEDS: LEVOFLOXACIN 750 MG/D5% WATER 150 ML IV SCH (10:15)
[2024-12-28 17:41] LABS: GLUCOMETER DEV NAME(LOC) 5N.1D; GLUCOSE,POINT OF CARE 178 MG/DL (70-110)
[2024-12-28 17:55] LABS: GLUCOMETER DEV NAME(LOC) 5N.2C; GLUCOSE,POINT OF CARE 169 MG/DL (70-110)
[2024-12-28] MEDS ORDERED: ALBU18HF12 IH (18:30)
[2024-12-28] MEDS ORDERED: PRED-554 PO (18:30)
[2024-12-28] MEDS ORDERED: GUAIF600 PO (18:30)
[2024-12-28] MEDS ORDERED: CEFA2VIA IV (18:30)
[2024-12-28] MEDS ORDERED: CARV3 PO (18:30)
[2024-12-28] MEDS ORDERED: BENZ-227 PO (18:30)
[2024-12-28 19:08] LABS: APPEARANCE,URINE CLEAR (CLEAR); BILIRUBIN,URINE NEGATIVE (NEGATIVE); COLOR,URINE COLORLESS (YELLOW); GLUCOSE, URINE (UA) NEGATIVE (NEGATIVE); KETONES,URINE NEGATIVE (NEGATIVE); LEUKOCYTE ESTERASE ,URINE TRACE (NEGATIVE); NITRATE,URINE NEGATIVE (NEGATIVE); OCCULT BLOOD,URINE TRACE (NEGATIVE); PH,URINE 5.5 (5.0-8.0); PROTEIN,URINE TRACE mg/dL (NEGATIVE); UROBILINOGEN,URINE <=1.0 mg/dL (<=1.0)
[2024-12-28 19:19] LABS: BACTERIA,URINE Rare /HPF (None Seen); SQUAMOUS EPITHELIAL CELL,UR Moderate /LPF (None Seen)
== END 2024-12-28 21:40 | disposition home health service (06) | DRG 871 ==
LOC: EMS 22:11 → EDH 12-19 00:42 → 5S 12-19 14:00
PROVIDERS: ADMIT Internal Medicine; ATTEND Internal Medicine
PROC: 5A09357 Assistance with Respiratory Ventilation, Less than 24 Consecutive Hours, Continuous Positive Airway Pressure (ICD-10-PCS; principal; 2024-12-19)
PROC: 05HB33Z Insertion of Infusion Device into Right Basilic Vein, Percutaneous Approach (ICD-10-PCS; 2024-12-26)
DX: A41.9 Sepsis, unspecified organism (principal); I50.33 Acute on chronic diastolic (congestive) heart failure; J96.01 Acute respiratory failure with hypoxia; N17.9 Acute kidney failure, unspecified; J18.9 Pneumonia, unspecified organism; I13.0 Hypertensive heart and chronic kidney disease with heart failure and stage 1 through stage 4 chronic kidney disease, or unspecified chronic kidney disease; J44.0 Chronic obstructive pulmonary disease with (acute) lower respiratory infection; E66.2 Morbid (severe) obesity with alveolar hypoventilation; Z68.41 Body mass index [BMI] 40.0-44.9, adult; E44.0 Moderate protein-calorie malnutrition; D64.9 Anemia, unspecified; E87.6 Hypokalemia; E78.5 Hyperlipidemia, unspecified; L40.9 Psoriasis, unspecified; E11.22 Type 2 diabetes mellitus with diabetic chronic kidney disease; E87.5 Hyperkalemia; F15.10 Other stimulant abuse, uncomplicated; F17.210 Nicotine dependence, cigarettes, uncomplicated; Z20.822 Contact with and (suspected) exposure to COVID-19; Z88.5 Allergy status to narcotic agent; Z99.81 Dependence on supplemental oxygen
CPT/HCPCS: 36245; 36569; 36600; 71045; 71250; 76770; 76937; 80048; 80053; 80076; 81001; 81002; 82550; 82570; 82728; 82784; 82805; 82962; 83540; 83550; 83605; 83735; 83880; 84100; 84155; 84156; 84165; 84300; 84484; 84540; 85025; 85610; 85730; 86160; 86334; 87040; 87070; 87081; 87086; 87205; 87804; 93005; 93308; 94640; 94660; 97116; 97163; 97530; 99291; J0131; J0456; J0690; J1644; J1940; J1956; J2543; J2919; J7030; J7040; J7050; J7060; 36415-L1; 36415-TC; J7613; Z7610

== ENCOUNTER 2025-02-02 03:00 | Inpatient (IN) | payer MEDICARE, MEDICAID ==
[~2025-02-02] VITALS: Ht 157.5 cm; Wt 91.0 kg
[2025-02-02] VITALS (8 sets, daily range): BP systolic 115–130; BP diastolic 53–65; PULSE 67–94; RESP 19–44; TEMP 98.1–98.4; O2SAT 99–100
[~2025-02-02 03:00] MED LIST changes: +ALBU18HF12 IH; +AMOX-457 PO; +BENZ-227 PO; +CARV3 PO; +CEFA2VIA IV; -CEPH-558 PO; +GUAIF600 PO; +PRED-554 PO; +RISA150P SQ; +SITA50 PO
[2025-02-02] MEDS: IPRATROPIUM BROMIDE 0.5 MG/2.5 ML NEB SOLUTION NEB ONE (03:15)
[2025-02-02] MEDS: ALBUTEROL SULFATE 2.5 MG/0.5 ML 5 ML NEB SOLUTION NEB ONE (03:15)
[2025-02-02] MEDS ORDERED: 0.9% SODIUM CHLORIDE 10 ML SYRINGE IVP PRN (03:15)
[2025-02-02] MEDS: FUROSEMIDE 40 MG/4 ML VIAL IVP ONE ×2 (03:16→05:26)
[2025-02-02 03:17] LABS: PLATELET COUNT (AUTO) 423 K/uL (150-450); RED BLOOD CELL COUNT(AUTO) 3.57 MIL/uL (4.00-5.20); RED CELL DISTRIBUTION WIDTH 16.5 % (11.5-14.5); WHITE BLOOD COUNT (AUTO) 18.8 K/uL (4.5-11.0)
[2025-02-02 03:39] LABS: ASPARTATE AMINOTRANSFERASE 28 U/L (15-37); TOTAL PROTEIN, SERUM 6.5 g/dL (6.4-8.2)
[2025-02-02 03:44] LABS: LACTIC ACID 4.6 mmol/L (0.4-2.0)
[2025-02-02 04:00] LABS: SODIUM SERUM 144 mmol/L (136-145); TROPONIN I-HIGH SENSITIVITY 11 ng/L (<51)
[2025-02-02 04:08] LABS: CALCIUM, TOTAL 9.2 mg/dL (8.8-10.5); CREATININE 1.55 mg/dL (0.60-1.30); GLOMERULAR FILTR. RATE CALC 33 mL/min (>60); GLUCOSE,RANDOM 290 mg/dL (70-110); UREA NITROGEN, BLOOD 21 mg/dL (7-18)
[2025-02-02 04:11] LABS: ABG BASE EXCESS -3.3 mmol/L (-2.0-3.0); ABG CARBOXYHEMOGLOBIN 1.1 % (0.5-1.5); ABG HCO3 21.7 mmol/L (21.0-28.0); ABG METHEMOGLOBIN 1.3 % (0.0-1.5); ABG OXYGEN CONTENT 12.7 mL/dL (15.0-23.0); ABG OXYGEN SATURATION 98.7 % (94.0-98.0); ABG OXYHEMOGLOBIN 96.3 % (94.0-98.0); ABG PCO2 48 mmHg (32.0-45.0); ABG PH 7.300 (7.350-7.450); ABG TOTAL HEMOGLOBIN 9.2 G/dL (12.0-16.0); FRACTIONATED INSPIRED OXYGEN 50.0 % (21-100.0); PO2, ARTERIAL BG 113.6 mmHg (83.0-108.0); SOURCE, BLOOD GAS ARTERIAL; TEMPERATURE, FAHRENHEIT, BG 98.6 FAHREN (96.0-98.6)
[2025-02-02 04:15] LABS: ALLEN TEST, BLOOD GAS POS; O2 DEVICE,BLOOD GAS BIPAP (ROOM AIR); SET RATE, BG 14.0 min.; SITE, BLOOD GAS RT BRACHIAL
[2025-02-02] MEDS: PIPERACILLIN/TAZO 3.375 GM/D5W 50 ML IV ONE (04:15)
[2025-02-02 04:16] LABS: PATIENT RATE, BG 24.0 min.; SPONTANEOUS VT, BG 448 ml
[2025-02-02] MEDS: AZITHROMYCIN 500 MG/NS 250 ML IV ONE (05:26)
[2025-02-02 05:35] LABS: APPEARANCE,URINE CLEAR (CLEAR); GLUCOSE, URINE (UA) NEGATIVE (NEGATIVE); LEUKOCYTE ESTERASE ,URINE NEGATIVE (NEGATIVE); NITRATE,URINE NEGATIVE (NEGATIVE); OCCULT BLOOD,URINE NEGATIVE (NEGATIVE); SPECIFIC GRAVITIY, URINE 1.007 (1.003-1.030)
[2025-02-02] MEDS ORDERED: ALBUTEROL SULFATE HFA 90 MCG/PUFF 8 GM INHALER IH PRN (16:15)
[2025-02-02] MEDS ORDERED: DEXTROSE 50%-WATER 25 GM/50 ML SYRINGE IVP PRN (16:15)
[2025-02-02] MEDS: GuaiFENesin SR 600 MG ER TABLET PO SCH (20:29)
[2025-02-02] MEDS: BENZONATATE 100 MG CAPSULE PO SCH (20:29)
[2025-02-02] MEDS: FUROSEMIDE 40 MG/4 ML VIAL IVP SCH (20:30)
[2025-02-03 00:03] VITALS: BP 101/52; PULSE 74; RESP 19; TEMP 98.2; O2SAT 98
[2025-02-03 03:20] VITALS: BP 104/56; PULSE 76; RESP 18; TEMP 98.1; O2SAT 97
[2025-02-03] MEDS ORDERED: ONDANSETRON HCL 4 MG/2 ML VIAL IVP PRN (05:15)
[2025-02-03] MEDS ORDERED: ACETAMINOPHEN 325 MG TABLET PO PRN (05:15)
[2025-02-03] MEDS ORDERED: MORPHINE SULFATE 2 MG/ML SYRINGE IVP PRN (05:15)
[2025-02-03] MEDS ORDERED: ZOLPIDEM TARTRATE 5 MG TABLET PO PRN (05:15)
[2025-02-03] MEDS ORDERED: BISACODYL 10 MG RECTAL RECTAL SUPPOSITORY PR PRN (05:15)
[2025-02-03] MEDS ORDERED: MAGNESIUM HYDROXIDE SUSPENSION 30 ML UDCUP PO PRN (05:15)
[2025-02-03] MEDS ORDERED: IPRATROPIUM BROMIDE 0.5 MG/2.5 ML NEB SOLUTION NEB PRN (05:15)
[2025-02-03 06:30] LABS: PLATELET COUNT (AUTO) 254 K/uL (150-450); RED BLOOD CELL COUNT(AUTO) 3.22 MIL/uL (4.00-5.20); RED CELL DISTRIBUTION WIDTH 16.4 % (11.5-14.5); WHITE BLOOD COUNT (AUTO) 7.6 K/uL (4.5-11.0)
[2025-02-03 06:36] LABS: CALCIUM, TOTAL 9.0 mg/dL (8.8-10.5); CREATININE 1.21 mg/dL (0.60-1.30); GLOMERULAR FILTR. RATE CALC 45.0 mL/min (>60); GLUCOSE,RANDOM 97.0 mg/dL (70-110); SODIUM SERUM 145.0 mmol/L (136-145); UREA NITROGEN, BLOOD 19.0 mg/dL (7-18)
[2025-02-03 07:28] VITALS: BP 115/58; PULSE 72; RESP 18; TEMP 97.7; O2SAT 98
[2025-02-03] MEDS: HEPARIN SODIUM,PORCINE 5,000 UNITS/ML VIAL SQ SCH (08:09)
[2025-02-03] MEDS: PANTOPRAZOLE SODIUM 40 MG/VIAL IVP SCH (08:10)
[2025-02-03] MEDS: DOCUSATE SODIUM 100 MG/10 ML LIQUID UDCUP PO SCH (08:11)
[2025-02-03 10:31] LABS: GLUCOMETER DEV NAME(LOC) 5S.1D; GLUCOSE,POINT OF CARE 115 MG/DL (70-110)
[2025-02-03 10:31] LABS: GLUCOMETER DEV NAME(LOC) 5S.1D; GLUCOSE,POINT OF CARE 99 MG/DL (70-110)
[2025-02-03 10:31] LABS: GLUCOMETER DEV NAME(LOC) 5S.1D; GLUCOSE,POINT OF CARE 141 MG/DL (70-110)
[2025-02-03 11:17] VITALS: BP 117/67; PULSE 71; RESP 18; TEMP 98.2; O2SAT 98
[2025-02-03] MEDS ORDERED: POTASSIUM CHL 10 MEQ/WATER 50 ML IV PRN (12:30)
[2025-02-03 12:36] LABS: GLUCOMETER DEV NAME(LOC) 5S.1D; GLUCOSE,POINT OF CARE 145 MG/DL (70-110)
[2025-02-03] MEDS: POTASSIUM CHLORIDE 20 MEQ ER TABLET PO PRN (13:03)
[2025-02-03 15:49] VITALS: BP 110/54; PULSE 79; RESP 18; TEMP 97.7; O2SAT 98
[2025-02-03 20:00] VITALS: BP 131/61; PULSE 80; RESP 18; TEMP 98.4; O2SAT 99
[2025-02-03 22:20] LABS: GLUCOMETER DEV NAME(LOC) 5N.2C; GLUCOSE,POINT OF CARE 230 MG/DL (70-110)
[2025-02-03 22:20] LABS: GLUCOMETER DEV NAME(LOC) 5N.2C; GLUCOSE,POINT OF CARE 230 MG/DL (70-110)
[2025-02-04] VITALS: BP 117/60; PULSE 76; RESP 18; TEMP 97.9; O2SAT 100
[2025-02-04 04:00] VITALS: BP 117/62; PULSE 72; RESP 18; TEMP 98.1; O2SAT 99
[2025-02-04 06:41] LABS: PLATELET COUNT (AUTO) 300 K/uL (150-450); RED BLOOD CELL COUNT(AUTO) 3.32 MIL/uL (4.00-5.20); RED CELL DISTRIBUTION WIDTH 16.2 % (11.5-14.5); WHITE BLOOD COUNT (AUTO) 11.0 K/uL (4.5-11.0)
[2025-02-04 06:58] LABS: CALCIUM, TOTAL 9.4 mg/dL (8.8-10.5); CREATININE 1.2 mg/dL (0.60-1.30); GLOMERULAR FILTR. RATE CALC 45.0 mL/min (>60); GLUCOSE,RANDOM 89.0 mg/dL (70-110); SODIUM SERUM 142.0 mmol/L (136-145); UREA NITROGEN, BLOOD 24.0 mg/dL (7-18)
[2025-02-04 07:11] LABS: GLUCOMETER DEV NAME(LOC) 5N.2C; GLUCOSE,POINT OF CARE 96 MG/DL (70-110)
[2025-02-04 08:09] VITALS: BP 125/60; PULSE 88; RESP 18; TEMP 98.2; O2SAT 100
[2025-02-04 12:10] LABS: GLUCOMETER DEV NAME(LOC) 5N.1D; GLUCOSE,POINT OF CARE 158 MG/DL (70-110)
[2025-02-04 12:55] VITALS: BP 126/71; PULSE 76; RESP 19; TEMP 98.1; O2SAT 100
[2025-02-04] MEDS ORDERED: FURO20TA5 PO (13:19)
[2025-02-04] MEDS ORDERED: PRED-554 PO (13:20)
[2025-02-04] MEDS ORDERED: POTA-203 PO (13:26)
== END 2025-02-04 15:40 | disposition home or self-care (01) | DRG 189 ==
LOC: EMS 03:00 → EDH 07:14 → 5N 12:28
PROVIDERS: ADMIT Hospitalist; ATTEND Hospitalist
PROC: 5A09357 Assistance with Respiratory Ventilation, Less than 24 Consecutive Hours, Continuous Positive Airway Pressure (ICD-10-PCS; principal; 2025-02-02)
DX: J96.21 Acute and chronic respiratory failure with hypoxia (principal); I50.43 Acute on chronic combined systolic (congestive) and diastolic (congestive) heart failure; J44.1 Chronic obstructive pulmonary disease with (acute) exacerbation; I13.0 Hypertensive heart and chronic kidney disease with heart failure and stage 1 through stage 4 chronic kidney disease, or unspecified chronic kidney disease; N18.4 Chronic kidney disease, stage 4 (severe); E66.01 Morbid (severe) obesity due to excess calories; E11.22 Type 2 diabetes mellitus with diabetic chronic kidney disease; F17.210 Nicotine dependence, cigarettes, uncomplicated; D63.8 Anemia in other chronic diseases classified elsewhere; E87.6 Hypokalemia; L40.9 Psoriasis, unspecified; Z68.36 Body mass index [BMI] 36.0-36.9, adult; Z88.5 Allergy status to narcotic agent; Z91.119 Patient's noncompliance with dietary regimen due to unspecified reason; Z71.6 Tobacco abuse counseling; Z79.899 Other long term (current) drug therapy
CPT/HCPCS: 71045; 80048; 80076; 81003; 82805; 82962; 83605; 83880; 84132; 84145; 84484; 85025; 85610; 85730; 87040; 87081; 93005; 94644; 94660; 96365; 96367; 96375; 99291; J0456; J1644; J1940; J2470; J2543; 36415-L1; 36415-TC